=== PATIENT | male | born 1995 | race Asian ===

== ENCOUNTER 2021-08-05 14:18 | Emergency (ER) | payer OTHER ==
[~2021-08-05] VITALS: Ht 175.3 cm; Wt 81.6 kg
[2021-08-05 16:07] VITALS: BP 131/57
[2021-08-05] MEDS ORDERED: OXYMETAZOLINE HCL 0.05 % NASAL SPRAY 15ML EACHNOSTRI ONE (16:15)
== END 2021-08-05 16:39 | disposition home or self-care (01) ==
LOC: ER 14:18
DX: R04.0 Epistaxis (principal)